=== PATIENT | male | born 1975 | race Caucasian/White ===

== ENCOUNTER 2019-03-10 15:39 | Emergency (ER) | payer OTHER ==
[~2019-03-10] VITALS: Ht 170 cm; Wt 82.0 kg
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
[2019-03-10] MEDS ORDERED: HYDR-4226 PO (16:50)
[2019-03-10] MEDS ORDERED: CYCL10TA9 PO (16:50)
--- NOTE | 2019-03-10 16:50 | NUR ---
Patient requesting to have 800 mg ibuprofen instead of flexeril and norco. Notified Dr Franz.
[2019-03-10 16:57] VITALS: BP 135/96
[2019-03-10] MEDS ORDERED: IBUP-1780 PO (17:01)
== END 2019-03-10 17:04 | disposition home or self-care (01) ==
LOC: ER FS 15:41
DX: S09.90XA Unspecified injury of head, initial encounter (principal); S79.911A Unspecified injury of right hip, initial encounter; S16.1XXA Strain of muscle, fascia and tendon at neck level, initial encounter; V69.40XA Driver of heavy transport vehicle injured in collision with unspecified motor vehicles in traffic accident, initial encounter
CPT/HCPCS: 70450; 71045; 72125; 73502

== ENCOUNTER → 2019-03-21 | Outpatient (CLI) | payer OTHER ==
[~2019-03-21] MED LIST: CYCL10TA9 PO; HYDR-4226 PO; IBUP-1780 PO
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
== END ==
LOC: RAD 12:22
PROVIDERS: ATTEND Pediatrics
DX: M19.012 Primary osteoarthritis, left shoulder (principal)
CPT/HCPCS: 73000; 73030

== ENCOUNTER → 2019-04-10 | Outpatient (CLI) | payer OTHER ==
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
== END ==
LOC: RAD 13:03
PROVIDERS: ATTEND Physician Assistant
DX: M47.812 Spondylosis without myelopathy or radiculopathy, cervical region (principal); M48.02 Spinal stenosis, cervical region; M50.223 Other cervical disc displacement at C6-C7 level; M77.9 Enthesopathy, unspecified; M25.512 Pain in left shoulder
CPT/HCPCS: 72141

== ENCOUNTER → 2019-08-06 | Outpatient (CLI) | payer OTHER ==
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
== END ==
LOC: RAD 11:58
PROVIDERS: ATTEND Orthopaedic Surgery Orthopaedic Surgery of the Spine
DX: S43.492A Other sprain of left shoulder joint, initial encounter (principal); M25.812 Other specified joint disorders, left shoulder; M19.012 Primary osteoarthritis, left shoulder
CPT/HCPCS: 73221